=== PATIENT | female | born 1995 | race Caucasian/White ===

== ENCOUNTER 2018-09-21 02:37 | Emergency (ER) | payer OTHER ==
[~2018-09-21] VITALS: Ht 157.5 cm; Wt 58.1 kg
[2018-09-21 02:37] VITALS: BP 119/73
[2018-09-21 02:38] VITALS: BP 119/73
--- NOTE | 2018-09-21 02:38 | NUR ---
BIBA BLS TO ER BED 4
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
--- NOTE | 2018-09-21 03:23 | NUR ---
PT TAKEN TO CT.
--- NOTE | 2018-09-21 03:35 | NUR ---
PT RETURNED FROM CT.
--- NOTE | 2018-09-21 04:00 | NUR ---
PT ASLEEP. VISIBLE CHEST RISE AND FALL. AROUSABLE TO NAME AND LIGHT TOUCH. WILL CONTINUE TO MONITOR.
--- NOTE | 2018-09-21 04:25 | NUR ---
Patient discharged with v/s stable. Written and verbal after care instructions given and explained. Patient alert, oriented and verbalized understanding of instructions. Ambulatory with steady gait. All questions addressed prior to discharge. ID band removed. Patient advised to follow up with PMD. Rx of [place] and Ibuprofen given. Patient educated on indication of medication including possible reaction and side effects. Opportunity to ask questions provided and answered.
== END 2018-09-21 04:25 | disposition home or self-care (01) ==
LOC: MED 02:37
DX: S80.01XA Contusion of right knee, initial encounter (principal); S10.93XA Contusion of unspecified part of neck, initial encounter; S00.83XA Contusion of other part of head, initial encounter; V89.2XXA Person injured in unspecified motor-vehicle accident, traffic, initial encounter; Y93.89 Activity, other specified; Y92.89 Other specified places as the place of occurrence of the external cause; Y99.8 Other external cause status
CPT/HCPCS: 70450; 73562; 81025; 99284; Q0092